=== PATIENT | male | born 1955 | race African-American/Black ===

== ENCOUNTER 2021-07-08 23:27 | Emergency (ER) | payer OTHER ==
[2021-07-08 23:44] VITALS: BP 110/60; PULSE 92; TEMP 98; BMI 21.7
== END 2021-07-09 02:26 | disposition left against medical advice (07) ==
LOC: JER 23:27
DX: R68.89 Other general symptoms and signs (principal); Z01.89 Encounter for other specified special examinations
CPT/HCPCS: 99283-25

== ENCOUNTER 2021-07-12 00:09 | Emergency (ER) | payer OTHER ==
[2021-07-12 00:36] VITALS: BP 140/65; PULSE 98; TEMP 97.7; BMI 21.7
== END 2021-07-12 07:01 | disposition home or self-care (01) ==
LOC: JER 00:09
DX: F10.129 Alcohol abuse with intoxication, unspecified (principal)
CPT/HCPCS: 99281-25